=== PATIENT | female | born 1980 | race Two or more races ===

== ENCOUNTER 2017-12-08 19:50 | Emergency (ER) | payer OTHER ==
[~2017-12-08] VITALS: Ht 165.1 cm; Wt 63.5 kg
[2017-12-08 20:21] VITALS: BP 124/78
== END 2017-12-08 20:43 | disposition home or self-care (01) ==
LOC: ER 19:52
DX: B86 Scabies (principal)
CPT/HCPCS: 99281; A4606; Z7610; Z7502

== ENCOUNTER 2018-08-27 13:31 | Emergency (ER) | payer OTHER ==
[~2018-08-27] VITALS: Ht 152.4 cm; Wt 61.2 kg
--- NOTE | 2018-08-27 13:31 | NUR ---
PT BIBSELF FROM HOME FOR WORSENING H/A, PT AAOX4, RESPIRATIONS EVEN AND UNLABORED, NO DIZZINESS NOTED, NO N/V, NAD NOTED, VSS, PENDING ER PROVIDER EVAL
[2018-08-27] MEDS ORDERED: DEXAMETHASONE SOD PHOSPHATE 4 MG/ML VIAL ONE (14:19)
[2018-08-27] MEDS ORDERED: diphenhydrAMINE HCL 50 MG/ML VIAL ONE (14:19)
[2018-08-27] MEDS ORDERED: PROCHLORPERAZINE EDISYLATE 10 MG/2 ML VIAL ONE (14:20)
[2018-08-27] MEDS ORDERED: KETOROLAC TROMETHAMINE INJ 30 MG/ML VIAL ONE (14:20)
[2018-08-27] MEDS ORDERED: PROCHLORPERAZINE EDISYLATE 10 MG/2 ML VIAL IV ONE (14:30)
[2018-08-27] MEDS ORDERED: IV NS 0.9% 1,000 ML BAG IV ONE (14:30)
[2018-08-27] MEDS ORDERED: KETOROLAC TROMETHAMINE INJ 30 MG/ML VIAL IV ONE (14:30)
[2018-08-27] MEDS ORDERED: DEXAMETHASONE SOD PHOSPHATE 4 MG/ML VIAL IV ONE (14:30)
[2018-08-27] MEDS ORDERED: diphenhydrAMINE HCL 50 MG/ML VIAL IV ONE (14:30)
[2018-08-27 15:49] VITALS: BP 121/85
--- NOTE | 2018-08-27 16:08 | NUR ---
Patient discharged to home in stable condition. Written and verbal after care instructions given. Patient verbalizes understanding of instruction. IV removed. Catheter intact and site benign. Pressure and 4x4 applied to site. No bleeding noted.
== END 2018-08-27 16:09 | disposition home or self-care (01) ==
LOC: ER 13:33
DX: R51 Headache (principal); R11.0 Nausea; H53.149 Visual discomfort, unspecified
CPT/HCPCS: 87804 ×2; 96374; 96375; 99283; A4606; J0780; J1100; J1200; J1885; J7030; Z7610; 87400

== ENCOUNTER 2024-06-12 18:13 | Emergency (ER) | payer MEDICAID, OTHER ==
[~2024-06-12] VITALS: Ht 152.4 cm; Wt 63.5 kg
[2024-06-12 19:39] LABS: BASOPHILS % (AUTO) 0.4 % (0.0-2.0); EOSINOPHILS # (AUTO) 0.2 K/uL (0.0-0.7); EOSINOPHILS % (AUTO) 2.2 % (0.0-6.0); HEMATOCRIT 38 % (33-45); LYMPHOCYTES # (AUTO) 2.7 K/uL (0.8-4.8); LYMPHOCYTES % (AUTO) 32.7 % (20.0-44.0); MEAN CORPUSCULAR HEMOGLOBIN 30 PG (26.0-33.0); MEAN CORPUSCULAR HGB CONC 34 g/dl (31.0-36.0); MEAN CORPUSCULAR VOLUME 89 fL (82-100); MONOCYTES # (AUTO) 0.8 K/uL (0.1-1.30); MONOCYTES % (AUTO) 9.6 % (2.0-12.0); NEUTROPHILS # (AUTO) 4.6 K/uL (1.8-8.9); NEUTROPHILS % (AUTO) 55.1 % (43.0-81.0); PLATELET COUNT (AUTO) 266 K/uL (150-450); RED BLOOD CELL COUNT(AUTO) 4.31 MIL/uL (4.0-5.2); RED CELL DISTRIBUTION WIDTH 13.4 % (11.5-15.0); WHITE BLOOD COUNT (AUTO) 8.4 K/uL (4.3-11.0)
[2024-06-12] MEDS ORDERED: CLINDAMYCIN HCL 150 MG CAPSULE ONE (19:47)
[2024-06-12] MEDS ORDERED: CLIN150C16 PO (19:49)
[2024-06-12] MEDS: CLINDAMYCIN HCL 150 MG CAPSULE PO ONE (19:51)
[2024-06-12 19:55] LABS: URIC ACID 2.1 mg/dL (2.6-7.2)
[2024-06-12 19:58] LABS: ALBUMIN 3.7 g/dL (3.4-5.0); BILIRUBIN,TOTAL 0.2 mg/dL (0.2-1.0); CALCIUM, SERUM 8.3 mg/dL (8.5-10.1); CREATININE 0.7 mg/dL (0.6-1.3); POTASSIUM 3.7 mmol/L (3.5-5.1); TOTAL PROTEIN, SERUM 7.9 g/dL (6.4-8.2)
[2024-06-12 21:20] VITALS: BP 134/89; TEMP 98; O2SAT 99
== END 2024-06-12 21:20 | disposition home or self-care (01) ==
LOC: ER 18:20
DX: L03.114 Cellulitis of left upper limb (principal)
CPT/HCPCS: 36415; 73080-TC; 80053-TC; 84550-TC; 85025-TC